=== PATIENT | male | born 1950 | race African-American/Black ===

== ENCOUNTER 2023-07-29 13:39 | Inpatient (IN) | payer OTHER ==
[~2023-07-29] VITALS: Ht 193 cm; Wt 85.1 kg
[2023-08-05] MEDS ORDERED: LR 1,000 ML IV SCH (10:00)
[2023-08-06] VITALS (11 sets, daily range): BP systolic 135–172; BP diastolic 74–89; PULSE 59–96; TEMP 98.1–99
[2023-08-06] MEDS ORDERED: metroNIDAZOLE 500 MG/100 ML IVPB IV SCH (10:30)
[2023-08-06] MEDS ORDERED: Gabapentin 100 MG CAP PO SCH (10:30)
[2023-08-06] MEDS ORDERED: Acetaminophen 500 MG TAB PO SCH ×2 (10:30→17:13)
[2023-08-06] MEDS ORDERED: Celecoxib 200 MG CAP PO SCH (10:30)
[2023-08-06] MEDS ORDERED: Lidocaine PF 2% (20 MG/ML) 5 ML VIAL ONE ×2 (10:43→10:46)
[2023-08-06] MEDS ORDERED: Ondansetron 4 MG/2 ML VIAL ONE (10:43)
[2023-08-06] MEDS ORDERED: dexAMETHasone 10 MG/ML VIAL ONE (10:43)
[2023-08-06] MEDS ORDERED: Rocuronium 50 MG/5 ML Multi-Dose VIAL ONE ×2 (10:44→13:29)
[2023-08-06] MEDS ORDERED: fentaNYL 50 MCG/ML 2 ML VIAL ONE (10:44)
[2023-08-06] MEDS ORDERED: Midazolam 2 MG/2 ML VIAL ONE (10:44)
[2023-08-06] MEDS ORDERED: NS 100 ML IV ONE (10:46)
[2023-08-06 11:22] LABS: HEMATOCRIT 45.9 % (42.0-52.0); MEAN CELL VOLUME 86 fl (80.0-100.0); MEAN CORPUSCULAR HEMOGLOBIN 28 pg (27-31); MEAN CORPUSCULAR HGB CONC 33 g/dl (33.0-37.0); MEAN PLATELET VOLUME 11.6 fl (7.4-10.4); PLATELET COUNT 197 K/mm3 (130-400); RED BLOOD COUNT 5.33 M/mm3 (4.20-5.60); REDCELL DISTRIBUTION WIDTH-CV 12.7 % (11.5-14.5)
[2023-08-06 11:44] LABS: ALBUMIN 4.1 g/dL (3.4-4.8); BILIRUBIN,TOTAL 0.8 mg/dL (0.2-1.2); CALCIUM 9.5 mg/dL (8.4-10.2); CREATININE, serum 1.06 mg/dL (0.72-1.25); POTASSIUM 3.7 mEq/L (3.5-4.5); TOTAL PROTEIN 8.1 g/dl (6.2-8.1)
[2023-08-06] MEDS ORDERED: Topical Skin Adhesive 1 EACH (1 ML) TOP ONE (12:19)
[2023-08-06] MEDS ORDERED: Ondansetron 4 MG/2 ML VIAL IV PRN ×2 (13:15→16:15)
[2023-08-06] MEDS ORDERED: hydrALAZINE 20 MG/ML 1 ML VIAL IV PRN (13:15)
[2023-08-06] MEDS ORDERED: fentaNYL 50 MCG/ML 1 ML SYRINGE/VIAL [PACU/SDC ONLY] IV PRN (13:15)
[2023-08-06] MEDS ORDERED: droPERidol 2.5 MG/ML 2 ML VIAL IV PRN (13:15)
[2023-08-06] MEDS ORDERED: Morphine 2 MG/1 ML VIAL [PACU/SDC ONLY] IV PRN (13:15)
[2023-08-06] MEDS ORDERED: HYDROmorphone 1 MG/1 ML SYRINGE [PACU/SDC ONLY] IV PRN (13:15)
[2023-08-06] MEDS ORDERED: LR 1,000 ML IV ONE (15:30)
[2023-08-06] MEDS ORDERED: Morphine 4 MG/ML VIAL IV PRN (16:15)
[2023-08-06] MEDS ORDERED: oxyCODONE 5 MG TAB PO PRN (16:15)
[2023-08-06] MEDS ORDERED: Ibuprofen 400 MG TAB PO PRN (16:15)
[2023-08-06] MEDS ORDERED: LR 1,000 ML IV SCH (16:15)
[2023-08-06] MEDS ORDERED: Naloxone 0.4 MG/ML VIAL IV PRN (16:15)
--- NOTE | 2023-08-06 17:18 | NUR ---
PATIENT BROUGHT TO FLOOR AT APPROXIMATELY 1700. POST OP VITALS RUNNING AND WNL. LAPS X4 CDI WITH SKIN GLUE. ONE LOW TRANSVERSE LAP SITE CDI WTIH SKIN GLUE. PATIENT REPORTS MILD PAIN, DENIES NEED FOR PAIN MEDICATIONS. PATIENT ON CLEAR LIQUID DIET, REQUESTS ICE CHIPS. LR RUNNING AT 75ML/HOUR AND INFUSING INTO RIGHT FA. NO FURTHER NEEDS. PATIENT RESTING AND REFUSES SCHEDULED TYLENOL. CALL LIGHT IN REACH.
--- NOTE | 2023-08-06 19:15 | NUR ---
report received from olena rees. pt resting in bed watching tv. pt denies pain. post op vitals continue wnl. call light in reach. all needs met at this time.
--- NOTE | 2023-08-06 21:00 | NUR ---
shift assessment complete, see documentation. pt reporting 12/15 abd pain. prn oxycodone administered per orders. call light in reach. all needs met at this time.
[2023-08-07] VITALS (12 sets, daily range): BP systolic 113–172; BP diastolic 65–80; PULSE 63–83; TEMP 98–98.7
[2023-08-07 06:55] LABS: HEMATOCRIT 38.4 % (42.0-52.0)
--- NOTE | 2023-08-07 07:00 | NUR ---
Pt doing well at shift change, reports pain tolerable. Call light within reach
[2023-08-07 07:08] LABS: HEMOGLOBIN 12.8 g/dl (13.5-18.0)
[2023-08-07 07:33] LABS: CALCIUM 8.7 mg/dL (8.4-10.2); CREATININE, serum 1.03 mg/dL (0.72-1.25); MAGNESIUM 1.8 mg/dL (1.6-2.6); PHOSPHOROUS 2.4 mg/dL (2.3-4.7); POTASSIUM 4.2 mEq/L (3.5-4.5)
--- NOTE | 2023-08-07 08:00 | NUR ---
Pt has ordered breakfast, waiting for it at this time. Pt appears to be comfortable. Incision all well approximated with no drainage noted. Discussed pain with pt and he stated that it was 7-8. Explained that 10 was the worst pain he has ever felt and he nodded and said "yeah." PRN pain medication given. I did get him up and he did ambulate a short distance in the dior without difficulty.
--- NOTE | 2023-08-07 10:50 | NUR ---
broke worker met with patient to discuss discharge planning. Pt reports he lives with his two brothers in [place]. He sees Dr. Otto at [facility] in [place]. He obtains medications from [facility] or [facility] with no issues. He is independent with ADLs and uses no DME. He states he was just up walking the halls and still tries to play basketball. He has no concerns for mobility. He lists his contacts as his girlfriend, Charity Murphy [phone] and brother, Boone Corona [phone]. Pt does not have a DPOA-HC and declines one. Discharge Plan: home
--- NOTE | 2023-08-07 13:00 | NUR ---
Report received from NALLELY Acosta. Pt is awake in bed with no complaints. Assessment completed. Call light within reach.
--- NOTE | 2023-08-07 14:10 | NUR ---
Initial visit; Patient states he just loves everyone at our hospital. He says we are all so friendly and nice and helpful. He thanked [facility] Nurse for coming in and having a smile on her face and making him comfortable. [facility] Nurse offered God's blessings and wished him well.
--- NOTE | 2023-08-07 21:00 | NUR ---
PT A&O X4 RESTING IN BED. VSS. LAPS X4 & LOW TRANSVERSE TOO & EDGES WELL APPROX. PT REPORTS HIS PAIN "IS THE BEST ITS BEEN YET", RATES 07/15 & DENIES NEED FOR PAIN MEDS. CALL LIGHT IN REACH & DENYING FURTHER NEEDS
[2023-08-08] VITALS (7 sets, daily range): BP systolic 109–138; BP diastolic 69–72; PULSE 71–77; TEMP 98.1–98.3
--- NOTE | 2023-08-08 03:10 | NUR ---
PT STATES ABD PAIN IS 8/10, GAVE PRN OXYCODONE PER JUN. PT DENYING OTHER NEEDS. CALL LIGHT IN REACH
--- NOTE | 2023-08-08 05:46 | NUR ---
PT RESTING IN BED WITH UNLABORED RESP. CALL LIGHT IN REACH
[2023-08-08] MEDS ORDERED: NORCO 325 MG-51 TAB PO (08:35)
--- NOTE | 2023-08-08 09:00 | NUR ---
Patient resting in bed. Alert and oriented. Minimal complaints of pain. Tylenol per ERAS. He reports flatus and abdomen soft, incision edges well approximated. INT. Will monitor
--- NOTE | 2023-08-08 10:36 | NUR ---
Patient resting in bed. Reports being up to the bathroom and having a loose browm BM and continuing to pass flatus. No interest in food, but did drink and ensure without nausea. INT removed per patient continual request. Patient hopeful for discharge home. Will Monitor.
--- NOTE | 2023-08-08 11:24 | NUR ---
D: Initial visit: Dish Carrier stopped by room on rounds. A: Pt was resting and content. Pt has no needs right now. P: Dish Carrier informed pt that if he needed anything from the shuttle fixer area to let his nurse know. Dish Carrier will follow up as needed.
--- NOTE | 2023-08-08 13:57 | NUR ---
Patient ready to get home. rounded and orders obtained. Patient understanding of education given. Medication safety reviewed for script of delmis, side effects reviewed. Incisions and incisions cares reviewed. diet reviewed. Patient denies questions or concerns. Patient amblated out with brother taking him home.
== END 2023-08-08 14:04 | disposition home or self-care (01) | DRG 331 ==
LOC: SURG 08-06 10:22 → INPTSU 08-06 10:22 → SURG 08-06 12:30
PROVIDERS: Surgery; ADMIT Surgery
PROC: 0DNL4ZZ Release Transverse Colon, Percutaneous Endoscopic Approach (ICD-10-PCS; 2023-08-06)
PROC: 8E0W4CZ Robotic Assisted Procedure of Trunk Region, Percutaneous Endoscopic Approach (ICD-10-PCS; 2023-08-06)
PROC: 0DTF4ZZ Resection of Right Large Intestine, Percutaneous Endoscopic Approach (ICD-10-PCS; principal; 2023-08-06 12:30)
DX: D12.3 Benign neoplasm of transverse colon (principal)
CPT/HCPCS: A4314; A9284; J1100; J1650; J1836; J2250; J2405; J2704; J2795; J3010; J7120